=== PATIENT | female | born 1995 | race Caucasian/White ===

== ENCOUNTER 2017-03-29 00:56 | Emergency (ER) | payer OTHER, BC ==
[2017-03-29] MEDS ORDERED: FLUCONAZOLE 150 MG TAB ONE (01:49)
--- NOTE | 2017-03-29 05:31 | EDPHY ---
H & P Constitutional: Initial Vital Signs Temperature (C) 36.9 C 03/29/17 01:05 Heart Rate 102 H 03/29/17 01:05 Respiratory Rate 18 03/29/17 01:05 Blood Pressure 136/93 H 03/29/17 01:05 O2 Sat (%) 98 03/29/17 01:05 O2 Delivery Mode Room Air Medical Decision Making ED Course/Re-evaluation: Chief Complaint: Vaginal irritation HPI: 21-year-old woman presenting with 1 week of a cold sore on her lip and a scabbed lesion near her vagina. Patient states that the vaginal lesions started about a week ago. The sore on her lip about 3 days ago. She is sexually active with a single partner for the last 6 months. She had negative STD testing several months ago. No other sexual partners. No history of STDs in the past. No vaginal discharge. She does take control. ROS: 10 point Review of Systems is negative except as noted in the HPI. PMH: None Social History: No smoking, occasional alcohol, no recreational drug use Family History: non-contributory Physical Exam: Gen: Awake, Alert, No Distress HEENT: Nose: no rhinorrhea Eyes: PERRLA, EOMI Mouth: Moist mucosa Neck: Supple, no JVD Chest: nontender, lungs clear to auscultation Heart: S1, S2 normal, no murmur Abd: Soft, non-tender, no guarding Genital: There is a small 3 mm lesion in the midline anterior at the, sugar of the labia majora. There is mild skin excoriation. There is no redness. There are no vesicles but there is small skin breakdown. She has got multiple areas of abrasions secondary to shaving. There is a scant heard like vaginal discharge. Back: no CVA tenderness, no midline tenderness Ext: no edema, non-tender Skin: no rash Neuro: CN II-XII intact, Sensation grossly intact, Strength 5/5 in bilateral upper and lower extremities Clinical Course: 21-year-old female presenting with a vaginal lesion that she is concerned about herpes. She does have [place] infection. She does have a very small anterior lesion with some skin excoriation. There is no erythema. There is no vesicles. I have sent a a herpes swab. Also sent to dirty urine. Patient does not want to stay in the emergency department she has a final later this morning. I told her that it is fine for her to call back to get those results. Otherwise I will have her follow up at [facility]. Impression: Genital lesion, vaginal candidiasis - Data Points Laboratory Results: 03/29/17 03/29/17 01:39 01:39 C.trachomatis RNA (TMA) Pending HSV Source Description Pending HSV I DNA PCR Pending HSV II DNA PCR Pending N.gonorrhoeae RNA (TMA) Pending Departure - Departure Disposition: Home, Routine, Self-Care Clinical Impression: Genital lesion, female, Vaginal candidiasis Condition: Good Instructions: Vulvovaginal Candidiasis (ED) Additional Instructions: Follow up at work [employer] in 2-3 days for further evaluation. You may call the hospital later today to get the results of your STI testing. Return to the emergency department for increasing pain, fevers, chills, nausea, vomiting, or any other concerns. Referrals: JENNY Jane,. [Clinic] - As per Instructions
[2017-03-29 05:53] VITALS: BP 123/78; PULSE 79; RESP 16; TEMP 97.9; O2SAT 99
[2017-03-29 13:28] LABS: CHLAMYDIA AMPLIFICATION GENPRB NEGATIVE (NEGATIVE)
[2017-03-30 20:08] LABS: SPECIMEN SOURCE VAGINAL
== END 2017-03-29 02:10 | disposition home or self-care (01) ==
DX: B37.3 Candidiasis of vulva and vagina (principal); N90.89 Other specified noninflammatory disorders of vulva and perineum
CPT/HCPCS: 87529-90